=== PATIENT | female | born 1960 | race Caucasian/White ===

== ENCOUNTER 2017-09-15 05:48 | Day surgery (SDC) | payer MEDICARE ==
[2017-09-15] MEDS ORDERED: LACTATED RINGERS 1,000 ML ONE (06:48)
[2017-09-15] MEDS ORDERED: fentaNYL CITRATE INJ 50 MCG/ML AMP ONE (07:54)
[2017-09-15] MEDS ORDERED: MIDAZOLAM INJ 2 MG/2 ML VIAL ONE (07:54)
[2017-09-15] MEDS ORDERED: LACTATED RINGERS 1,000 ML IVS ONE (08:38)
--- NOTE | 2017-09-15 08:58 | OP ---
DATE OF PROCEDURE: 09/15/17 PREPROCEDURE DIAGNOSIS: 1. Surveillance colonoscopy for a history of colonic polyps. POSTPROCEDURE DIAGNOSIS: 1. Colonic polyp. PROCEDURE: 1. Colonoscopy with polypectomy. SURGEON: Jose Antoine MD. SEDATION: Monitored anesthesia care. ESTIMATED BLOOD LOSS: Less than 5 mL. PROCEDURE: Informed consent was obtained prior to sedation. The preprocedure cardiopulmonary assessment was satisfactory. The patient was brought to the Endoscopy Suite and placed in the left lateral decubitus position. The patient was then sedated by the anesthesia team. Digital rectal and perianal exams were unremarkable. The tip of the Olympus colonoscope was inserted into the rectum and advanced under direct visualization to the terminal ileum. The cecum was identified by the presence of the appendiceal orifice and ileocecal valve. Preparation of the colon was good. Upon reaching the terminal ileum, the endoscope was slowly withdrawn from the patient with careful attention paid to the entire colonic mucosa for the identification of any flat polyps or small vascular lesions. In the sigmoid colon, there was a 4 mm sessile polyp. This was resected with cold snare polypectomy, but the specimen was not retrieved. A retroflexed view of the anal verge showed no abnormalities. The endoscope was then withdrawn from the patient and the procedure terminated. RECOMMENDATION: 1. Discharge the patient home with escort. 2. Surveillance colonoscopy in 5 years' time. 3. Regular diet. 4. Continue present medications. 5. Followup in my office as previously scheduled. #[id number] MTDD
[2017-09-15 09:38] VITALS: BP 127/83; TEMP 97.5; O2SAT 96
[2017-09-15] MEDS ORDERED: PROPOFOL 200 MG/20 ML VIAL IV ONE (10:00)
[2017-09-15] MEDS ORDERED: LIDOCAINE 1% 10 ML VIAL INJ ONE (10:00)
== END 2017-09-15 09:50 | disposition home or self-care (01) ==
LOC: AMB 05:48
PROVIDERS: ATTEND Internal Medicine Gastroenterology
DX: Z12.11 Encounter for screening for malignant neoplasm of colon (principal); D12.5 Benign neoplasm of sigmoid colon; K21.9 Gastro-esophageal reflux disease without esophagitis; G89.29 Other chronic pain; M54.5 Low back pain; F17.200 Nicotine dependence, unspecified, uncomplicated; E11.9 Type 2 diabetes mellitus without complications; J44.9 Chronic obstructive pulmonary disease, unspecified; Z98.84 Bariatric surgery status; Z86.010 Personal history of colon polyps; Z79.891 Long term (current) use of opiate analgesic; Z79.84 Long term (current) use of oral hypoglycemic drugs; Z79.899 Other long term (current) drug therapy
CPT/HCPCS: 00812; 36416; 45385; 82948; J2250; J3010; J3490; J7120

== ENCOUNTER → 2017-09-28 | Outpatient (CLI) | payer MEDICARE ==
--- NOTE | 2017-09-29 08:51 | MRI ---
EXAM DESCRIPTION: Lumbar Spine w/o Contrast MRI. CLINICAL HISTORY: LUMBAR DEGENERATIVE DISC DISEASE COMPARISON: MRI lumbar spine 04/06/2013. TECHNIQUE: Multiplanar, multiple standard sequences, non contrast MRI, lumbar spine. FINDINGS: L5-S1: Disc desiccation with disc space preserved. Broad-based 4 mm bulge with 5 to 6 mm left paracentral protrusion abutting the left ventral thecal sac and the descending left S1 nerve above the subarticular recess. Borderline left paracentral mild canal stenosis. Bilateral mild facet arthrosis and posterior flavum ligament hypertrophy more on the left. Bilateral moderate foraminal narrowing more on the left. Prior partial left laminectomy. L4-5: Disc desiccation with disc space preserved. Posterior broad-based 4 mm disc bulge abutting the thecal sac. Hypertrophy of the bilateral flavum ligaments narrowing the transverse canal. AP canal diameter 9 mm. Bilateral mild facet arthrosis. Moderate right foraminal narrowing and left foraminal stenosis. L3-4: Disc desiccation. Anterior disc bulge and endplate ridging. Minimal disc space loss. Posterior broad-based 4 mm disc bulge. Moderate bilateral facet arthrosis and flavum ligament hypertrophy compressing the posterior thecal sac AP canal diameter 8 mm. Modic type I endplate reactive changes to the right of midline with disc spur complex encroaching on the foramen and abutting the exiting right L3 nerve. Borderline right foraminal stenosis. Left foramen is patent. L2-3: Disc desiccation and minimal disc space loss. Anterior bulging and endplate ridging. Posterior broad-based 4 mm disc bulge. Posterior hypertrophy facets and flavum ligaments impressing on the posterior lateral thecal sac. Moderate canal narrowing. Bilateral mild foraminal narrowing more on the right. L1-2: Disc desiccation with anterior disc space loss. Anterior Modic type II endplate reactive changes with anterior endplate ridging and disc bulging. Posterior broad-based disc bulge with right paracentral 5 mm protrusion abutting the thecal sac and the descending right S2 nerve. Borderline right paracentral canal stenosis. Bilateral mild foraminal narrowing. Minimal hypertrophy of the flavum ligaments and facet arthrosis. Conus terminates at this level. T12-L1: Disc is unremarkable with no bulging anterior or posterior. No canal or foraminal stenosis. Hypertrophy of left flavum ligament with left facet arthrosis. Paravertebral soft tissues showing paraspinal muscle atrophy.. Normal marrow signal in the remaining vertebral bodies and the posterior elements. Levoscoliosis L3-S1. Dextroscoliosis T11-L2. Vertebral bodies are not compressed at any level. IMPRESSION: 1. Left posterior L5-S1 disc protrusion abutting the descending left S1 nerve. This is a new finding since the prior study. Correlate for left S1 radiculopathy. 2. Multifactorial mild canal stenosis at L4-5 and moderate canal stenosis at L3-4; this is progressed at both levels since the prior study. Right side spondylosis at L3-4 with disc spur encroachment on the exiting right L3 nerve is a new finding since the prior study. 3. Left foraminal stenosis at L4-5 is a new finding since the prior study. Correlate for left L4 radiculopathy. 4. Right paracentral protrusion of the L1-2 disc abutting the descending right S2 nerve with borderline right paracentral canal stenosis. Moderate and prominent anterior spondylosis. Stable since the prior study. Electronically signed by: Mekhi Haynes MD 09/29/2017 8:49 AM CDT
== END ==
LOC: MRI 10:46
PROVIDERS: ATTEND Family Medicine
DX: M51.36 Other intervertebral disc degeneration, lumbar region (principal); M51.26 Other intervertebral disc displacement, lumbar region

== ENCOUNTER → 2017-11-12 | Outpatient (CLI) | payer MEDICARE ==
--- NOTE | 2017-11-12 15:39 | MRI ---
EXAM DESCRIPTION: Cervical Spine CLINICAL HISTORY: RADICULOPATHY COMPARISON: None Available. TECHNIQUE: MRI of the cervical spine is performed according to our usual protocol. FINDINGS: Sagittal T2 images reveal decreased signal intensity within the intervertebral discs consistent with desiccation. Normal T2 appearance of the cervical cord. Posterior discal abnormalities are most prominent at the C4-5 through C6-7 levels. Sagittal T1 images show benign marrow signal characteristics. Normal T1 appearance of the cervical and upper thoracic spinal cord. Normal alignment of the vertebral bodies and facets. Sagittal STIR images are negative for high signal intensity marrow edema within the vertebral bodies or posterior elements. No paraspinous fluid collection or cystic lesion. Axial images were obtained to evaluate the disc levels. C2-3: Normal posterior disc margin with no spinal stenosis or neural foraminal narrowing. Facets appear mildly hypertrophic. Normal appearance of the cord at this level. C3-4: Mild posterior disc/osteophyte complex is seen with right lateral and far right lateral accentuation. There is marked facet spurring on the right with uncovertebral joint spurring causing severe narrowing of the right neural foramen. No spinal stenosis. Left neural foramen appears widely patent. Mild facet degenerative changes on the left. Normal appearance of the cord at this level. C4-5: Moderate diffuse posterior disc/osteophyte complex is seen with effacement of CSF around the cord. No definite cord contouring is present. In the mid sagittal plane the AP diameter of the spinal canal measures 9 mm. Facet spurring is most prominent on the right. Bilateral facet and uncovertebral joint spurring causes severe neural foraminal narrowing. C5-6: Mild to moderate posterior disc/osteophyte complex is seen with left lateral accentuation. Facet degenerative changes are more prominent on the left than the right. Moderate left neural foraminal narrowing is related to facet and uncovertebral joint spurring. No significant spinal stenosis. Normal appearance of the cord at this level. C6-7: Moderate diffuse posterior disc/osteophyte complex is seen without significant spinal stenosis. There is mild facet spurring on the left with moderate bilateral uncovertebral joint spurring. Moderate right neural foraminal narrowing is seen with mild neural foraminal narrowing on the left. Normal appearance of the cord at this level. C7-T1: Marked left-sided facet degenerative spurring is seen with severe narrowing of the left sided neural foramen. Right neural foramen is mildly narrowed by facet and uncovertebral joint spurring. No spinal stenosis or posterior discal abnormality. Normal appearance of the cord at this level. IMPRESSION: Moderate posterior disc/osteophyte complex at C4-5 level with mild spinal stenosis. Multilevel facet and uncovertebral joint spurring causing neural foraminal narrowing as described. Electronically signed by: João Mojica MD 11/12/2017 3:38 PM CDT
== END ==
LOC: MRI 09:45
PROVIDERS: ATTEND Psychiatry & Neurology Neurology
DX: M54.12 Radiculopathy, cervical region (principal); M45.0 Ankylosing spondylitis of multiple sites in spine; F01.50 Vascular dementia, unspecified severity, without behavioral disturbance, psychotic disturbance, mood disturbance, and anxiety; M33.90 Dermatopolymyositis, unspecified, organ involvement unspecified; F81.9 Developmental disorder of scholastic skills, unspecified; E11.9 Type 2 diabetes mellitus without complications; R53.83 Other fatigue; R50.9 Fever, unspecified; M79.A9 Nontraumatic compartment syndrome of other sites; M10.9 Gout, unspecified

== ENCOUNTER → 2018-01-10 | Outpatient (CLI) | payer MEDICARE ==
--- NOTE | 2018-01-14 15:30 | MAM ---
EXAM DESCRIPTION: 3D Screening BILATERAL : Digital Mammography. CLINICAL HISTORY: 57 years Female SCREENING . No complaints. Remote family history of breast cancer. Childbirth. Postmenopausal. Currently on HRT. COMPARISON: 2-D digital screening bilateral study 06/09/2017 and 05/08/2015. Report from prior examination 2017 also reviewed. TECHNIQUE: Bilateral CC and MLO projection full-field images, 3-D tomosynthesis digital mammographic technique. CAD not utilized. FINDINGS: The breast parenchymal density pattern is: Scattered areas of fibroglandular density. No skin thickening or nipple retraction. Bilateral axillary lymph nodes. Bilateral intramammary lymph nodes. Bilateral solitary microcalcifications. Skin mole on the medial undersurface of the mid left breast indicated by skin marker. No new focal, stellate mass or density, focal asymmetry , and no suspicious microcalcifications bilaterally. Stable mammograms compared to prior study, taking into account differences in mammographic technique. IMPRESSION: BI-RADS CATEGORY: 2 - BENIGN FINDINGS. FOLLOW UP: Routine digital bilateral screening, one year interval from January 2018. Written communication explaining the IMPRESSION and follow-up, will be mailed to the patient and referring health care provider. According to the [employer], yearly mammograms are recommended starting at age 40 and continuing as long as a woman is in good health. Any breast change noted on a breast self-exam should be reported promptly to the patient's healthcare provider. Breast MRI is recommended for women with an approximately 20-25% or greater lifetime risk of breast cancer, including women with a strong family history of breast or ovarian cancer and women who have been treated for Hodgkin's disease. A negative mammographic report should not delay tissue diagnosis in patients with significant clinical history or physical findings. Extremely dense breast tissue limits the sensitivity of digital mammography. Electronically signed by: Mekhi Haynes MD 01/14/2018 3:29 PM CDT
== END ==
LOC: MAMMO 11:00
PROVIDERS: ATTEND Family Medicine
DX: Z12.31 Encounter for screening mammogram for malignant neoplasm of breast (principal)

== ENCOUNTER → 2018-01-11 | Outpatient (CLI) | payer MEDICARE | LOC: LAB.O 10:16 | PROVIDERS: ATTEND Family Medicine | DX: E11.8 Type 2 diabetes mellitus with unspecified complications (principal); E03.9 Hypothyroidism, unspecified; E78.00 Pure hypercholesterolemia, unspecified ==

== ENCOUNTER → 2018-05-30 | Outpatient (CLI) | payer MEDICARE ==
--- NOTE | 2018-05-31 08:59 | RAD ---
EXAM DESCRIPTION: Chest,2 Views CLINICAL HISTORY: R06.02 COMPARISON: Previous study May 27, 2015 TECHNIQUE: PA/lateral FINDINGS: There is no acute appearing cardiac or pulmonary abnormality. Heart size is normal with normal pulmonary vascularity. No pleural effusion or pneumothorax. Lungs are clear with no consolidating infiltrate. Lateral view shows intact sternum and T-spine. Spurring is seen in the lower C-spine. IMPRESSION: No acute process is identified in the chest. Electronically signed by: João Mojica MD 05/31/2018 8:58 AM [facility]
== END ==
LOC: LAB.O 11:42
PROVIDERS: ATTEND Obstetrics & Gynecology
DX: R06.02 Shortness of breath (principal); R07.9 Chest pain, unspecified; E03.9 Hypothyroidism, unspecified; E11.9 Type 2 diabetes mellitus without complications; K21.9 Gastro-esophageal reflux disease without esophagitis; K57.92 Diverticulitis of intestine, part unspecified, without perforation or abscess without bleeding

== ENCOUNTER 2018-06-08 16:43 | Emergency (ER) | payer MEDICARE ==
[2018-06-08] MEDS ORDERED: SODIUM CHLORIDE 0.9% 1000ML 1,000 ML IVS ONE (17:01)
[2018-06-08] MEDS ORDERED: ASPIRIN (CHEWABLE) 81 MG TAB PO ONE (17:01)
[2018-06-08] MEDS ORDERED: NITROGLYCERIN 0.4 MG 25 EA TAB SL ONE (17:01)
[2018-06-08] MEDS ORDERED: ONDANSETRON ODT 8 MG TAB SL ONE (17:02)
--- NOTE | 2018-06-08 17:07 | ED.PDOC ---
History of Present Illness - General Chief Complaint: General Stated Complaint: short of breath, chest pain, dizzy, nausea Time Seen by Provider: 06/08/18 17:00 Source: patient, family Exam Limitations: no limitations - History of Present Illness Initial Comments: patient comes in today with episode of nausea, dry heaving, chest pain, and shortness of breath that started at 10 Patient has had intermittent bouts of these episodes going on last 1-2 months. She has an appointment with cardiology to discuss possible stress test versus other workup. Patient states today symptoms lasted longer and seemed to be worse and she got scared. patient states she has shortness of breath every day and was recently told that COPD. Patient does not notice it particularly worse at this time. Patient stopped smoking last month secondary to the diagnosis. states chest pain is a tightness that was much worse earlier and has improved currently. She does still feel the sensation of chest tighness, shakiness, and a weird sensation to her jaw. Patient states it is better but still present. She takes a baby aspirin at home but has not had any other medication including nitro tried yet for these symptoms. She denies emesis, abdominal pain, diarrhea, or constipation. She has no fever, chills, cough, or cold symptoms. She has diabetes, hypothyroidism, HTN ( just started on medication 1 month ago), and COPD. She has >20 pack year history. Timing/Duration: 4-6 hours Severity: severe Improving Factors: nothing, rest Worsening Factors: nothing Associated Symptoms: fever/chills, nausea/vomiting, shortness of breath Allergies/Adverse Reactions: Allergies NO KNOWN ALLERGY Allergy (Unverified 04/21/13 12:01) Home Medications: Ambulatory Orders Doxylamine Succinate (Sleep) [Sleep Aid] 25 mg PO BEDTIME 05/27/15 Esomeprazole Magnesium [Nexium] 40 mg PO DAILY 05/27/15 Estradiol [Estrace] 0.5 mg PO DAILY 05/27/15 Levothyroxine Sodium [Synthroid] 50 mcg PO DAILY 05/27/15 Naproxen Sodium [Aleve] 220 mg PO BEDTIME 05/27/15 Adderall 20 mg 60 mg PO DAILY 09/14/17 HYDROcodone 10MG/APAP 325MG 10.325 mg PO BID 09/14/17 Metformin HCl 500 mg PO DAILY 09/14/17 Morphine Oral Concentrate 60 mg PO BID 09/14/17 Trazodone HCl 1 tablet PO BEDTIME 06/08/18 Review of Systems - Review of Systems Constitutional: States: chills, weakness. Denies: fever EENTM: States: no symptoms reported. Denies: eye pain, ear pain, nose pain, nose congestion, throat pain Respiratory: States: short of breath. Denies: cough, wheezing Cardiology: States: see HPI, chest pain Gastrointestinal/Abdominal: States: nausea. Denies: abdominal pain, constipation, diarrhea, vomiting Genitourinary: States: no symptoms reported Musculoskeletal: States: no symptoms reported Skin: States: no symptoms reported Neurological: States: no symptoms reported Past Medical History (General) - Patient Medical History Hx Congestive Heart Failure: No Hx Diabetes: Yes Hx MRSA: Yes MRSA Source:: Wound Family Medical History - Family History Mother Family History: Unknown Physical Exam - Physical Exam General Appearance: Alert, Anxious Eye Exam: bilateral normal Ears, Nose, Throat: hearing grossly normal, normal ENT inspection, normal pharynx Neck: non-tender, full range of motion, supple, normal inspection Respiratory: chest non-tender, lungs clear, normal breath sounds, no respiratory distress Cardiovascular/Chest: normal peripheral pulses, regular rate, rhythm, no edema, no gallop, no JVD, no murmur Peripheral Pulses: radial,right: 2+, radial,left: 2+ Gastrointestinal/Abdominal: normal bowel sounds, non tender, soft Extremity: non-tender Neurologic: no motor/sensory deficits, alert, oriented x 3 Progress - Progress Progress: 06/08/18 18:17 Patient had no change with nitro but after breathing treatment chest pain improved greatly. Discussed prolonged QTc interval. Likely cause is her hypokalemia. After discussion, patient remembered that she was recently placed on Lasix and K. This may be the etiology for her hypokalemia and increased CR. These levels were normal on 05/30. It is less likely to be the lisinopril but with sudden worsening of CR would hold that medication at this time. Would also consider holding trazadone as it is high on the list of medications that increase QTC. Patient may benefit from change to nebulized treatment as she has not had any improvement with inhaler at home and N treatment here did work very well. Thyroid was checked on the and was normal on current therapy. Will call percussion instrument repairer practitioner to see about admission for K treatment on monitor and repeat EKG after normalization of K. We are ordering UA (on questioning she does state it has been foul smelling just no dysuria) and awaiting Mag level prior to that call. 06/08/18 19:39 magnesium level was <.8 and UA showed no definite UTI. Called for bed here and informed that we have no telemetry and that would be required for IV K and IV magnesium. Will call for transfer. Of note, patient is on chronic Nexium and we have warned her that she needs to stop in light of the magnesium deficiency - Results/Orders Results/Orders: 06/08/18 17:15 EKG STAT 06/08/18 17:16 MAGNESIUM Stat 06/08/18 18:05 KCl 40Meq/Ns [NS W/ KCL 40 meq/Liter] 1,000 ml IVS .QD 06/08/18 18:16 UA [URINALYSIS] Stat Laboratory Results WBC 6.5 K/mm3 (4.8-10.8) 06/08/18 17:16 RBC 4.38 M/mm3 (4.20-5.40) 06/08/18 17:16 Hgb 12.5 gm/dL (12.0-16.0) 06/08/18 17:16 Hct 38.1 % (36.0-47.0) 06/08/18 17:16 MCV 87.1 fl (81.0-99.0) 06/08/18 17:16 MCH 28.5 pg (27.0-31.0) 06/08/18 17:16 MCHC 32.7 g/dL (33.0-37.0) L 06/08/18 17:16 RDW 16.3 % (11.5-14.5) H 06/08/18 17:16 Plt Count 234 K/mm3 (130-400) 06/08/18 17:16 MPV 8.8 fl (7.40-10.4) 06/08/18 17:16 Absolute Neuts (auto) 3.30 K/uL (1.8-6.8) 06/08/18 17:16 Absolute Lymphs (auto) 2.10 K/uL (1.0-3.4) 06/08/18 17:16 Absolute Monos (auto) 0.90 K/uL (0.2-0.8) H 06/08/18 17:16 Absolute Eos (auto) 0.20 K/uL (0.0-0.4) 06/08/18 17:16 Absolute Basos (auto) 0.10 K/uL (0.0-0.1) 06/08/18 17:16 Neutrophils % 50.5 % (42.0-78.0) 06/08/18 17:16 Lymphocytes % 31.8 % (20.0-50.0) 06/08/18 17:16 Monocytes % 13.6 % (2.0-9.0) H 06/08/18 17:16 Eosinophils % 2.9 % (1.0-5.0) 06/08/18 17:16 Basophils % 1.2 % (0.0-2.0) 06/08/18 17:16 D-Dimer, Quantitative 0.49 mg/L FEU (0-0.49) 06/08/18 17:16 Sodium 135 mmol/L (135-145) 06/08/18 17:16 Potassium 2.7 mmol/L (3.6-5.0) L 06/08/18 17:16 Chloride 90 mmol/L (101-111) L 06/08/18 17:16 Carbon Dioxide 29 mmol/L (21-31) 06/08/18 17:16 Anion Gap 18.7 (12-18) H 06/08/18 17:16 BUN 17 mg/dL (7-18) 06/08/18 17:16 Creatinine 2.04 mg/dL (0.6-1.3) H 06/08/18 17:16 BUN/Creatinine Ratio 8.3 (10-20) L 06/08/18 17:16 Random Glucose 108 mg/dL (70-105) H 06/08/18 17:16 Serum Osmolality 272.2 mOsm/L (275-295) L 06/08/18 17:16 Calcium 9.2 mg/dL (8.4-10.2) 06/08/18 17:16 Total Bilirubin 0.8 mg/dL (0.2-1.0) 06/08/18 17:16 AST 56 IU/L (10-42) H 06/08/18 17:16 ALT 27 IU/L (10-60) 06/08/18 17:16 Alkaline Phosphatase 55 IU/L (42-121) 06/08/18 17:16 Creatine Kinase 109 IU/L (26-140) 06/08/18 17:16 CK-MB (CK-2) 3.9 ng/mL (0.0-4.4) 06/08/18 17:16 CK-MB (CK-2) % Not Reportable 06/08/18 17:16 Troponin I < 0.02 ng/mL (0.01-0.05) 06/08/18 17:16 Serum Total Protein 7.5 gm/dL (6.4-8.2) 06/08/18 17:16 Albumin 4.0 g/dl (3.2-5.5) 06/08/18 17:16 Globulin 3.5 gm/dL (2.3-3.5) 06/08/18 17:16 Albumin/Globulin Ratio 1.1 (1.1-1.9) 06/08/18 17:16 Amylase 24 U/L (28-100) L 06/08/18 17:16 Lipase 32 U/L (22-51) 06/08/18 17:16 Patient Name: GISSELL BUITRAGO Gender: Female Date of : 1960 Referring Physician: CAS MORIN Organization: [facility] Accession Number: [id number] Requested Date: June 08, 2018 17:02 Report Status: Final Requested Procedure: 1 Procedure Description: Chest,1 View Modality: CR Findings Reporting MD: Kiko Castle Fellow MD: Not available Dictation Time: Carpet Inspector: Not available Electrical Contacts Adjuster Date: EXAM DESCRIPTION: Chest,1 View CLINICAL HISTORY: shortness of breath, chest pain COMPARISON: Chest radiograph dated May 30, 2018 TECHNIQUE: Single upright portable frontal view of the chest FINDINGS: Cardiomediastinal silhouette and pulmonary vascularity are within normal limits. Lungs are clear without focal consolidations. Bilateral costophrenic angles are sharp. No pneumothorax. Visualized osseous structures show no destructive lesions. Included upper abdomen shows no acute abnormality. IMPRESSION: No radiographic evidence for acute cardiopulmonary process - EKG/XRAY/CT EKG: Sinus, no ST T wave changes Comments: prolonged QT interval, normal axis Departure - Departure Clinical Impression: Hypokalemia, Hypomagnesemia, Prolonged QT interval COPD (chronic obstructive pulmonary disease) Qualifiers: COPD type: unspecified COPD Qualified Code(s): J44.9 - Chronic obstructive pulmonary disease, unspecified Disposition: Transfer to Hospital Condition: Good Departure Forms: ED Discharge - Pt. Copy, Patient Portal Self Enrollment Diet: regular diet Referrals: SUDHA JACOBO [Primary Care Provider] - 1-2 Weeks Home Medications: Ambulatory Orders Doxylamine Succinate (Sleep) [Sleep Aid] 25 mg PO BEDTIME 05/27/15 Esomeprazole Magnesium [Nexium] 40 mg PO DAILY 05/27/15 Estradiol [Estrace] 0.5 mg PO DAILY 05/27/15 Levothyroxine Sodium [Synthroid] 50 mcg PO DAILY 05/27/15 Naproxen Sodium [Aleve] 220 mg PO BEDTIME 05/27/15 Adderall 20 mg 60 mg PO DAILY 09/14/17 HYDROcodone 10MG/APAP 325MG 10.325 mg PO BID 09/14/17 Metformin HCl 500 mg PO DAILY 09/14/17 Morphine Oral Concentrate 60 mg PO BID 09/14/17 Trazodone HCl 1 tablet PO BEDTIME 06/08/18 Transfer to Outside Facility - Transfer Information Accepting Facility: [facility] Reason for Transfer: specialized care not available - no tele available here all units taken
--- NOTE | 2018-06-08 17:27 | RAD ---
EXAM DESCRIPTION: Chest,1 View CLINICAL HISTORY: shortness of breath, chest pain COMPARISON: Chest radiograph dated May 30, 2018 TECHNIQUE: Single upright portable frontal view of the chest FINDINGS: Cardiomediastinal silhouette and pulmonary vascularity are within normal limits. Lungs are clear without focal consolidations. Bilateral costophrenic angles are sharp. No pneumothorax. Visualized osseous structures show no destructive lesions. Included upper abdomen shows no acute abnormality. IMPRESSION: No radiographic evidence for acute cardiopulmonary process. Electronically signed by: Kiko Castle MD 06/08/2018 5:26 PM [facility]
[2018-06-08] MEDS ORDERED: IPRATROPIUM/ALBUTEROL 3 ML VIAL NEB ONE (17:40)
[2018-06-08] MEDS ORDERED: KCL 40MEQ/NS 1,000 ML IVS PRN (18:05)
[2018-06-08] MEDS ORDERED: MAGNESIUM SULFATE PREMIX 2GM 2 GM in PREMIX BAG 1 BAG IVPB ONE (18:49)
[2018-06-08 18:50] VITALS: O2SAT 100
[2018-06-08] MEDS ORDERED: MAGNESIUM SULFATE PREMIX 2GM 50 ML IVPB ONE (18:51)
[2018-06-08 19:54] VITALS: TEMP 97.8
[2018-06-08] MEDS ORDERED: ALUM & MAG HYDROX-SIMETHICONE 30 ML UD PO ONE (20:18)
[2018-06-08 21:30] VITALS: BP 111/62
== END 2018-06-08 21:10 | disposition short-term general hospital (02) ==
LOC: ER 16:43
DX: J44.9 Chronic obstructive pulmonary disease, unspecified (principal); E87.6 Hypokalemia; E83.42 Hypomagnesemia; I45.81 Long QT syndrome; R07.9 Chest pain, unspecified; E11.9 Type 2 diabetes mellitus without complications; E03.9 Hypothyroidism, unspecified; I10 Essential (primary) hypertension; Z87.891 Personal history of nicotine dependence; Z79.84 Long term (current) use of oral hypoglycemic drugs; Z79.899 Other long term (current) drug therapy
CPT/HCPCS: 36415; 71045; 80053; 81001; 82150; 82550; 82553; 83690; 83735; 84484; 85025; 85379; 87086; 93005; 94640; J3475; J3480; J7030; J7620

== ENCOUNTER → 2019-04-18 | Outpatient (CLI) | payer MEDICARE ==
--- NOTE | 2019-04-19 09:38 | MRI ---
EXAM DESCRIPTION: Cervical Spine: MRI. CLINICAL HISTORY: 58 years Female CERVICAL RADICULOPATHY COMPARISON: MRI cervical spine November 2017. TECHNIQUE: Multiplanar, high-field MRI, multiple sequences, non-contrast Cervical spine. FINDINGS: C3-C4: Disc desiccation with no bulging into the canal but small bulge into the right neural foramen. Hypertrophic facet arthrosis on the right and uncinate spur with borderline right neural foraminal stenosis. Mild left neural foraminal narrowing. C4-C5: Disc desiccation and disc space loss. Anterior disc bulge and 2 millimeter anterolisthesis. Posterior broad-based disc bulge almost abutting the cord. Bilateral uncinate spurs. Bilateral neural foraminal stenosis. Posterior ligament thickening. Mostly right of midline with right paracentral mild canal stenosis. Hypertrophic facet arthrosis on the right. C5-C6: Disc desiccation and minimal disc space loss. Anterior disc bulging and endplate ridging. 3 mm grade 1 anterolisthesis. Posterior broad-based bulge mostly midline and left of midline. Posterior midline hyperintense T2 annular fissure. Moderate canal narrowing. Mild to moderate right neural foraminal narrowing. Moderate to severe left neural foraminal narrowing. C6-C7: Disc desiccation and minimal disc space loss. Anterior bulging and endplate ridging. Posterior midline focal bulge or small protrusion with hyper intense T2 annular fissure abutting the cord. Thickening of the posterior left ligaments. Central canal nearly stenotic. Bilateral uncinate spurs. No significant facet arthrosis. Mild to moderate left neural foraminal narrowing and borderline left neural foraminal stenosis. C7-T1: Disc desiccation and trace anterolisthesis and disc space loss. Hypertrophic left facet arthrosis and left neural foraminal stenosis. Mild narrowing of the canal with posterior ligament thickening. Mild to moderate right neural foraminal narrowing. T1-T2 disc desiccation with disc space maintained. Trace anterolisthesis with no disc bulging. Bilateral hypertrophic facet arthrosis with mild to moderate neural foraminal narrowing more left than right. Moderate canal narrowing. Normal signal in the C2-C3 disc with no bulging. Disc spaces preserved. Canal and neural foramina are patent. Facet joints negative Spinal alignment mid segments are slightly kyphotic.. No cord compression or cord edema. Atlantoaxial joint minimally hypertrophic. Base of the cerebellar tonsils is just above the foramen magnum. Paravertebral soft tissues negative. Vertebral bodies are not compressed at any level. Normal marrow signal in the remaining vertebral bodies and the posterior elements. IMPRESSION: 1. Multiple levels of disc desiccation bulging and disc space loss. Anterior bulging and endplate ridging at some levels. Unilateral or bilateral neural foraminal stenosis at multiple levels. Mild to moderate canal narrowing at several levels. Disc bulge posterior with annular fissures at some levels. Spine is kyphotic with several levels of anterolisthesis. 2. Right paracentral mild canal stenosis and bilateral neural foraminal stenosis at C4-C5. 3. Borderline right neural foraminal stenosis C3-C4. Borderline left neural foraminal stenosis C6-C7. Left neural foraminal stenosis C7-T1. Please see FINDINGS for additional details. Electronically signed by: Mekhi Haynes MD 04/19/2019 9:36 AM CDT
== END ==
LOC: MRI 13:52
PROVIDERS: ATTEND Psychiatry & Neurology Neurology
DX: M50.11 Cervical disc disorder with radiculopathy, high cervical region (principal); M50.121 Cervical disc disorder at C4-C5 level with radiculopathy; M50.122 Cervical disc disorder at C5-C6 level with radiculopathy; M50.123 Cervical disc disorder at C6-C7 level with radiculopathy; M50.13 Cervical disc disorder with radiculopathy, cervicothoracic region; M51.14 Intervertebral disc disorders with radiculopathy, thoracic region; M48.02 Spinal stenosis, cervical region; M48.03 Spinal stenosis, cervicothoracic region

== ENCOUNTER → 2019-04-19 | Outpatient (CLI) | payer MEDICARE ==
--- NOTE | 2019-04-20 10:25 | MRI ---
EXAM DESCRIPTION: Lumbar Spine w/o Contrast : Magnetic Resonance Imaging. CLINICAL HISTORY: RADICULOPATHY LUMBAR REGION COMPARISON: MRI lumbar spine without contrast 09/28/2017. TECHNIQUE: Multiplanar, multiple standard sequences, non contrast MRI, lumbar spine. FINDINGS: L5-S1: The disc is well visualized on axial T2 series 501, image 3. Disc desiccated with minimal bulge in the midline into the left of midline abutting the thecal sac and the descending left S1 nerve. Stable since the prior study. Partial laminectomy on the left with soft tissue changes again noted. AP canal diameter 12 mm. Moderate right foraminal narrowing and borderline left foraminal stenosis has progressed since the prior study. L4-L5: Disc desiccation with disc space maintained. Bilateral hypertrophic facet arthrosis and thickening of the posterior flavum ligaments impressing on the lateral thecal sac. AP canal diameter 9 mm stable. Moderate right foraminal narrowing and borderline left foraminal stenosis; stable since the prior study. L3-L4: Mild disc space loss on the left with disc desiccation and advanced disc space loss and endplate reactive changes on the right. Anterior disc bulge and endplate ridging. Right side disc osteophyte complex bulge into the soft tissues and the psoas muscle with moderate narrowing abutting the right L3 nerve. Left foramen is patent. Posterior bilateral hypertrophic facet arthrosis and ligament thickening impressing on the lateral thecal sac. AP canal diameter 7 mm. Stable since the prior study. L2-L3: Disc desiccation and minimal disc space loss more on the left. Anterior disc bulge and endplate ridging. Posterior broad-based bulge abutting the thecal sac. Retrolisthesis 2 mm. Bilateral mild foraminal narrowing. Stable since the prior study. L1-L2: Disc desiccation and large anterior bulge with endplate ridging. Posterior bilateral moderate hypertrophic facet arthrosis and ligament thickening. Posterior broad-based disc bulge with right paracentral small protrusion abutting the thecal sac and narrowing bilateral subarticular recesses, more on the right. AP canal diameter to the right of midline 9 mm. Conus terminates above the disc space. No change since the prior study. T12-L1: Minimal disc desiccation no significant bulging. Minimal hypertrophic facets and ligaments posterior. Canal and foramina are patent. L3-S1 levoscoliosis. Paravertebral soft tissues paraspinal muscle atrophy and postsurgical changes.. Distal cord normal signal and caliber. Normal marrow signal in the remaining vertebral bodies and the posterior elements. Vertebral bodies are not compressed at any level. IMPRESSION: 1. Multiple levels of disc desiccation and disc space narrowing. Spondylosis. Canal and foraminal narrowing. 2. Left foraminal stenosis at L5-S1 has progressed since the prior study. Borderline left L4-L5 foraminal stenosis is unchanged since the prior study. 3. Stable L3-L4 canal stenosis and right side disc osteophyte complex narrowing the right foramen and abutting the right L3 nerve since the prior study. 4. Right paracentral L1-L2 disc protrusion, narrowing of the subarticular recesses more on the right, and mild central canal stenosis unchanged since the prior study. Electronically signed by: Mekhi Haynes MD 04/20/2019 10:23 AM CDT
== END ==
LOC: MRI 13:41
PROVIDERS: ATTEND Psychiatry & Neurology Neurology
DX: M51.16 Intervertebral disc disorders with radiculopathy, lumbar region (principal); M48.061 Spinal stenosis, lumbar region without neurogenic claudication; M25.78 Osteophyte, vertebrae

== ENCOUNTER → 2019-06-27 | Outpatient (CLI) | payer MEDICARE ==
--- NOTE | 2019-06-27 16:33 | CT ---
EXAM DESCRIPTION: Abdoment/Pelvis w/o Contrast CLINICAL HISTORY: 58 years Female, Chronic kidney disease, stage 5 COMPARISON: None. TECHNIQUE: Transaxial images were obtained without intravenous or oral contrast media. Sagittal and coronal reconstruction was performed.This exam was performed according to our departmental dose-optimization program, which includes automated exposure control, adjustment of the mA and/or kV according to patient size and/or use of iterative reconstruction technique. FINDINGS: The lung bases are clear. A hiatus hernia is noted. A lap band is seen in place. The liver and spleen are unremarkable. No biliary ductal dilatation is observed. The gallbladder is been previously removed. Surgical clips are seen in the region of the gallbladder fossa. Imaging of the kidneys reveals no evidence of hydronephrosis mass cyst or calcification. No adrenal masses are detected. The pancreas is normal in appearance. Calcific atherosclerotic changes observed in the abdominal aorta without evidence of aneurysmal dilatation. The appendix is identified and is normal in appearance. No free fluid is observed in the pelvis. The patient is post hysterectomy. Diverticulosis of the colon is observed without evidence of diverticulitis. Degenerative changes are observed in the upper lumbar spine. IMPRESSION: 1. Hiatus hernia with a lap band in place. 2. Cholecystectomy. 3. No renal abnormality is detected. 4. Hysterectomy. 5. Diverticulosis without evidence of diverticulitis. Electronically signed by: Kiko Luis MD 06/27/2019 4:31 PM [employer]
== END ==
LOC: CT 10:40
PROVIDERS: ATTEND Internal Medicine Nephrology
DX: N18.4 Chronic kidney disease, stage 4 (severe) (principal); K44.9 Diaphragmatic hernia without obstruction or gangrene; K57.90 Diverticulosis of intestine, part unspecified, without perforation or abscess without bleeding; Z98.84 Bariatric surgery status; Z90.49 Acquired absence of other specified parts of digestive tract; Z90.710 Acquired absence of both cervix and uterus

== ENCOUNTER 2019-12-06 16:18 | Emergency (ER) | payer MEDICARE ==
--- NOTE | 2019-12-06 16:32 | ED.PDOC ---
History of Present Illness - General Chief Complaint: Neuro Symptoms/Deficits Time Seen by Provider: 12/06/19 16:30 Source: patient Exam Limitations: no limitations - History of Present Illness Initial Comments: 59 yo F who presents for visual deficits in both eyes for 3 days with associated frontal pressure headache, generalized weakness, n/v, unsteady gait, dizziness with associated falls x2 (does not believes she hit her head). Hx of seizures and has missed the previous three days of her medications. Has a neurologist in [place] that she has seen for similar sx in the past, told it was because she was off of her Keppra she takes for seizures. Denies f/c, cough, congestion, CP, SOB, body aches, sore throat, COVID exposure, abd pain, diarrhea, constipation, focal weakness, numbness. Pt is not on anticoagulation. Allergies/Adverse Reactions: Allergies NO KNOWN ALLERGY Allergy (Verified 12/06/19 17:23) Home Medications: Ambulatory Orders Doxylamine Succinate (Sleep) [Sleep Aid] 25 mg PO BEDTIME 05/27/15 Esomeprazole Magnesium [Nexium] 40 mg PO DAILY 05/27/15 Estradiol [Estrace] 0.5 mg PO DAILY 05/27/15 Levothyroxine Sodium [Synthroid] 50 mcg PO DAILY 05/27/15 Naproxen Sodium [Aleve] 220 mg PO BEDTIME 05/27/15 Adderall 20 mg 60 mg PO DAILY 09/14/17 HYDROcodone 10MG/APAP 325MG 10.325 mg PO BID 09/14/17 Metformin HCl 500 mg PO DAILY 09/14/17 Morphine Oral Concentrate 60 mg PO BID 09/14/17 Trazodone HCl 1 tablet PO BEDTIME 06/08/18 Review of Systems - Review of Systems Constitutional: Denies: chills, fever EENTM: States: other - decreased vision. Denies: eye pain, nose congestion, throat pain Respiratory: Denies: cough, orthopnea, short of breath Cardiology: Denies: chest pain, palpitations Gastrointestinal/Abdominal: States: nausea, vomiting. Denies: abdominal pain, constipation, diarrhea Genitourinary: Denies: dysuria, frequency, hematuria Musculoskeletal: Denies: back pain, joint pain, muscle pain, neck pain Skin: Denies: lesions, rash Neurological: States: headache, weakness - generalized, unsteady gait, falls, dizziness. Denies: numbness Endocrine: Denies: increased thirst, increased urine Hematologic/Lymphatic: Denies: easy bleeding, easy bruising Past Medical History (General) - Patient Medical History Hx Seizures: No Hx Stroke: No Hx of COPD: Yes Hx Congestive Heart Failure: No Hx Hypertension: Yes Hx Thyroid Disease: Yes Hx Diabetes: Yes Hx Cancer: No Hx MRSA: Yes MRSA Source:: Wound - Vaccination History Hx Tetanus, Diphtheria Vaccination: No Hx Influenza Vaccination: No - Social History Hx Alcohol Use: No Hx Depression: No Family Medical History - Family History Mother Family History: Unknown Physical Exam - Physical Exam General Appearance: Alert, Comfortable, No apparent distress, Well Developed, Well Nourished Eye Exam: bilateral other - Unable to track, will look all the way to the R on command but unable to look past midpoint when asked to look to the L, reports vision only intact bilaterally to light, Pressure bilaterally 21. No temporal TTP. ENT Exam: pharynx normal Neck: non-tender, full range of motion, supple, normal inspection, trachea midline Respiratory: chest non-tender, lungs clear, normal breath sounds, no respiratory distress, no accessory muscle use Cardiovascular/Chest: normal peripheral pulses, regular rate, rhythm, no edema, no gallop, no JVD, no murmur Peripheral Pulses: radial,right: 2+, radial,left: 2+ Gastrointestinal/Abdominal: non tender, soft, no organomegaly, no pulsatile mass, other - No distention, guarding, rebound Back Exam: normal inspection, no CVA tenderness, no vertebral tenderness Extremities Exam: non-tender, normal range of motion, no evidence of injury, no edema Mental Status: alert, oriented x 3 environmental officer Exam: normal hearing, normal speech, other - No facial asymmetry Coordination/Gait: other - unable to perform bilateral heel to castellon Motor/Sensory: other - Good strength throughout, no sensory deficit Skin Exam: normal color, warm/dry Progress - Progress Progress: 12/06/19 18:09 Discussed with pt and son the findings, states she would prefer to be transferred to [facility] where her neurologist is located, Dr. Knight. Per son, pt has been this way in the past when off of keppra. No know seizure recently. 12/06/19 18:[address] Sneed at [facility], accepts for transfer. Sharon Koo MD Emergency Medicine Physician Billing Number [id number] 1A. LOC Responsiveness Scores given according to the stimuli required to arouse the patient. Stimulus intensity should be increased gradually, starting from verbal to physical stimulation: Alert, responsive patient [0 points] Not alert, verbally arousable or to minor stimulation [1 point] Not alert, arousable to repeated, intense stimuli [2 points] Totally unresponsive, areflexic [3 points] 1B. LOC Questions Question about the current month and age: Both questions answered correctly [0 points] One of the questions answered correctly [1 point] Neither of the questions answered correctly or at all [2 points] 1C. LOC Commands The patients ability to understand and follow simple commands, the opening and closing of the eyes, lead programmer analyst and release of hands: Correct performance of both tasks [0 points] Correct performance of just one of the tasks [1 point] Incorrect or no performance of either task [2 points] 2. Horizontal eye movement The patients ability to track using his or her eyes, an object, pen or finger from side to side: Normal ability to follow pen or finger [0 points] Partial gaze palsy, abnormal in either one or both eyes [1 point] Total gaze paresis with gaze fixed to one side [2 points] 3. Visual field The patients vision in each of the visual thapa, having each eye tested individually while the other is covered. The upper and lower quadrants are tested by showing a number of fingers in that quadrant and asking the patient to count them: No vision loss [0 points] Partial hemianopia [1 point] Complete hemianopia [2 points] Bilateral Blindness [3 points] 4. Facial palsy This test observes facial symmetry in different types of movement such as the patient being asked to show teeth or gums, to squeeze eyes closed and to raise eyebrows: Normal and symmetrical movement [0 points] Minor paralysis with minor asymmetry [1 point] Partial paralysis in lower face [2 points] Complete facial hemiparesis [3 points] 5. Motor arm This task involves having the patient extend one arm 90 degrees out (sitting) or 45 degrees out (lying down) with the palm facing downwards while the eclectic doctor counts to 10. 5A and 5B note performance for each arm: 5A. Right arm No arm drift for the whole duration of the task [0 points] Drift to an intermediate position but without any support [1 point] The arm obtains the initial position but drifts down to support [2 points] No effort against gravity as the arm falls immediately [3 points] No voluntary movement [4 points] 5B. Left arm No arm drift for the whole duration of the task [0 points] Drift to an intermediate position but without any support [1 point] The arm obtains the initial position but drifts down to support [2 points] No effort against gravity as the arm falls immediately [3 points] No voluntary movement [4 points] 6. Motor leg Test supine position with one leg placed 30 degrees above horizontal and maintaining position while counting to 5. 6A and 6B note performance for each leA. Right leg No leg drift for the whole duration of the task [0 points] The leg drifts to an intermediate position, without support [1 point] Limited effort against gravity, the leg drifts to support [2 points] No effort against gravity, the leg falls immediately [3 points] No voluntary movement [4 points] 6B. Left leg No leg drift for the whole duration of the task [0 points] The leg drifts to an intermediate position, without support [1 point] Limited effort against gravity, the leg drifts to support [2 points] No effort against gravity, the leg falls immediately [3 points] No voluntary movement [4 points] 7. Limb ataxia Checking the presence of an unilateral cerebellar lesion, repeated (3, 4 times) movement of the finger from eclectic doctor touch to own nose and movement of the heel up and down the castellon of the opposite leg: Normal coordination, accurate movement [0 points] Ataxia present in one limb [1 point] Ataxia present in two or more limbs [2 points] 8. Sensory test Checking sensory loss due to stroke using pinpricks in the proximal portion of all four limbs: No evidence of sensory loss [0 points] Mild to moderate sensory loss, different sensation in the two sides [1 point] Severe or total loss of sensation to unilateral extremities [2 points] No response, quadriplegic, coma [2 points] 9. Language Assessing patients language skills using a picture of a scenario, a picture figuring random objects, a list of words and one of sentences: Normal skills, no obvious speech deficit [0 points] Mild to moderate aphasia with a certain loss of fluency [1 point] Severe aphasia with fragmented speech and limited context [2 points] Unable to speak - auditory comprehension [3 points] Default Coma Score [3 points] 10. Speech Dysarthria assessment by reading the word list: Normal speech [0 points] Mild to moderate dysarthria [1 point] Severe dysarthria - hardly understandable [2 points] 11. Extinction and inattention Double simultaneous stimulation: alternate touching (face, arms, legs) on the right and left side and both sides at the same time. Holding one finger in front of each of the eyes at the same time, wiggle one of the fingers or both and check the patients response: No observed abnormality [0 points] Innatention in one modality on one side [1 point] Darshan-innatention extinction to more that one modality [2 points] Default coma score [2 points] NIH score of 8, activase not given as out of time frame - Results/Orders Results/Orders: 12/06/19 16:30 Sodium Chloride 0.9% (Flush) [Saline Flush Syringe] 10 ml IV PRN PRN EKG STAT 12/06/19 19:06 Sodium Chloride 0.9% 1000ML [Ns 1000 ml] 1,000 ml IVS ONCE 12/07/19 16:30 EKG STAT Laboratory Results - last 24 hr 12/06/19 12/06/19 12/06/19 16:10 16:46 16:46 WBC 8.2 RBC 4.98 Hgb 15.3 Hct 45.3 MCV 91.0 MCH 30.7 MCHC 33.8 RDW 18.3 H Plt Count 176 MPV 9.3 Absolute Neuts (auto) 5.30 Absolute Lymphs (auto) 1.70 Absolute Monos (auto) 0.90 H Absolute Eos (auto) 0.20 Absolute Basos (auto) 0.10 Neutrophils % 64.5 Lymphocytes % 21.3 Monocytes % 10.6 H Eosinophils % 2.4 Basophils % 1.2 Normal RBC Morphology Stain quality accept ESR PT 10.8 INR 1.09 PTT (SP) 19.8 L Sodium Potassium Chloride Carbon Dioxide Anion Gap BUN Creatinine BUN/Creatinine Ratio POC Glucose 135 H Random Glucose Serum Osmolality Calcium Total Bilirubin AST ALT Alkaline Phosphatase Troponin I C-Reactive Protein Serum Total Protein Albumin Globulin Albumin/Globulin Ratio Ethyl Alcohol 12/06/19 12/06/19 12/06/19 16:46 16:46 16:46 WBC RBC Hgb Hct MCV MCH MCHC RDW Plt Count MPV Absolute Neuts (auto) Absolute Lymphs (auto) Absolute Monos (auto) Absolute Eos (auto) Absolute Basos (auto) Neutrophils % Lymphocytes % Monocytes % Eosinophils % Basophils % Normal RBC Morphology ESR 5 PT INR PTT (SP) Sodium 135 Potassium 4.6 Chloride 96 L Carbon Dioxide 30 Anion Gap 13.6 BUN 42 H Creatinine 4.25 H BUN/Creatinine Ratio 9.9 L POC Glucose Random Glucose 136 H Serum Osmolality 282.7 Calcium 18.2 H* Total Bilirubin 1.6 H AST 25 ALT 23 Alkaline Phosphatase 53 Troponin I < 0.02 C-Reactive Protein Serum Total Protein 7.5 Albumin 4.4 Globulin 3.1 Albumin/Globulin Ratio 1.4 Ethyl Alcohol 12/06/19 12/06/19 16:46 16:46 WBC RBC Hgb Hct MCV MCH MCHC RDW Plt Count MPV Absolute Neuts (auto) Absolute Lymphs (auto) Absolute Monos (auto) Absolute Eos (auto) Absolute Basos (auto) Neutrophils % Lymphocytes % Monocytes % Eosinophils % Basophils % Normal RBC Morphology ESR PT INR PTT (SP) Sodium Potassium Chloride Carbon Dioxide Anion Gap BUN Creatinine BUN/Creatinine Ratio POC Glucose Random Glucose Serum Osmolality Calcium Total Bilirubin AST ALT Alkaline Phosphatase Troponin I C-Reactive Protein < 0.5 Serum Total Protein Albumin Globulin Albumin/Globulin Ratio Ethyl Alcohol < 5.40 CT head: 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 This CT exam was performed according to our departmental dose-optimization program, which includes one or more of the following dose reduction techniques: automated exposure control, adjustment of the mA and/or kV according to patient size, and/or use of iterative reconstruction technique. COMPARISON: No prior exams provided for comparison. FINDINGS: There is no intracranial hemorrhage, extraaxial collection, or evidence of acute transcortical infarction. Scattered foci of low attenuation within the periventricular and subcortical white matter are most compatible with chronic microvascular disease. The ventricles and sulci are symmetric without midline shift or mass effect. Vascular calcifications are noted. No lesion of the skull base or calvarium is identified. The paranasal sinuses and mastoid air cells are clear. IMPRESSION: Mild chronic microvasc ular changes without acute intracranial finding. Electronically signed by: Xin Quinteros MD 12/06/2019 5:44 PM CDT CXR: EXAM DESCRIPTION: Chest,1 View CLINICAL HISTORY: CVA COMPARISON: Chest radiograph dated June 08, 2018 TECHNIQUE: One view radiograph of the chest FINDINGS: Cardiac silhouette shows normal heart size. Pulmonary vascularity is within normal limits. Lungs show no confluent infiltrates. No pleural effusion. No pneumothorax. Widening of the right acromioclavicular joint space by 1.1 cm without displacement. IMPRESSION: 1. No acute cardiopulmonary process. 2. Widening of the right acromioclavicular joint by 1.1 cm without displacement. Please correlate clinically for focal point tenderness or soft tissue injury. Electronically signed by: Kiko Castle MD 12/06/2019 5:45 PM CDT - 1966 Vital Signs - 24 hr 12/06/19 12/06/19 12/06/19 16:20 16:26 17:00 Temperature 98.2 F Pulse Rate [RT 81 81 75 BRACHIAL] Respiratory 20 20 20 Rate Blood Pressure 202/112 149/115 [RIGHT BRACHIAL ] O2 Sat by Pulse 97 92 L Oximetry 12/06/19 12/06/19 18:00 19:00 Temperature 97.5 F L Pulse Rate [RT 69 59 L BRACHIAL] Respiratory 20 20 Rate Blood Pressure 162/87 183/97 [RIGHT BRACHIAL ] O2 Sat by Pulse 97 97 Oximetry - EKG/XRAY/CT EKG: Sinus, no ST T wave changes Comments: Low voltage Departure - Departure Clinical Impression: AMIE (acute kidney injury), Uremia, Hypercalcemia, Visual changes Time of Disposition: 18:07 Disposition: Transfer to Hospital Home Medications: Ambulatory Orders Doxylamine Succinate (Sleep) [Sleep Aid] 25 mg PO BEDTIME 05/27/15 Esomeprazole Magnesium [Nexium] 40 mg PO DAILY 05/27/15 Estradiol [Estrace] 0.5 mg PO DAILY 05/27/15 Levothyroxine Sodium [Synthroid] 50 mcg PO DAILY 05/27/15 Naproxen Sodium [Aleve] 220 mg PO BEDTIME 05/27/15 Adderall 20 mg 60 mg PO DAILY 09/14/17 HYDROcodone 10MG/APAP 325MG 10.325 mg PO BID 09/14/17 Metformin HCl 500 mg PO DAILY 09/14/17 Morphine Oral Concentrate 60 mg PO BID 09/14/17 Trazodone HCl 1 tablet PO BEDTIME 06/08/18
[2019-12-06] MEDS: SODIUM CHLORIDE 0.9% 1000ML 1,000 ML IVS ONE ×2 (17:46→19:16)
--- NOTE | 2019-12-06 17:46 | CT ---
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 This CT exam was performed according to our departmental dose-optimization program, which includes one or more of the following dose reduction techniques: automated exposure control, adjustment of the mA and/or kV according to patient size, and/or use of iterative reconstruction technique. COMPARISON: No prior exams provided for comparison. FINDINGS: There is no intracranial hemorrhage, extraaxial collection, or evidence of acute transcortical infarction. Scattered foci of low attenuation within the periventricular and subcortical white matter are most compatible with chronic microvascular disease. The ventricles and sulci are symmetric without midline shift or mass effect. Vascular calcifications are noted. No lesion of the skull base or calvarium is identified. The paranasal sinuses and mastoid air cells are clear. IMPRESSION: Mild chronic microvascular changes without acute intracranial finding. Electronically signed by: Xin Quinteros MD 12/06/2019 5:44 PM CDT
[2019-12-06] MEDS: SODIUM CHLORIDE 0.9% (FLUSH) 10 ML SYG IV PRN (17:47)
--- NOTE | 2019-12-06 17:47 | RAD ---
EXAM DESCRIPTION: Chest,1 View CLINICAL HISTORY: CVA COMPARISON: Chest radiograph dated June 08, 2018 TECHNIQUE: One view radiograph of the chest FINDINGS: Cardiac silhouette shows normal heart size. Pulmonary vascularity is within normal limits. Lungs show no confluent infiltrates. No pleural effusion. No pneumothorax. Widening of the right acromioclavicular joint space by 1.1 cm without displacement. IMPRESSION: 1. No acute cardiopulmonary process. 2. Widening of the right acromioclavicular joint by 1.1 cm without displacement. Please correlate clinically for focal point tenderness or soft tissue injury. Electronically signed by: Kiko Castle MD 12/06/2019 5:45 PM CDT
[2019-12-06] MEDS ORDERED: TETRACAINE HCL 0.5% OPHTH SOL 1 DROP ONE (17:58)
[2019-12-06] MEDS: ACETAMINOPHEN IV 1000MG 1,000 MG in PREMIX BOTTLE 1 BOTTLE IVPB ONE (18:28)
[2019-12-06] MEDS: PANTOPRAZOLE SODIUM TAB 40 MG PO ONE (18:46)
[2019-12-06 19:24] VITALS: BP 183/97
[2019-12-06 19:53] VITALS: TEMP 97.6; O2SAT 96
== END 2019-12-06 19:35 | disposition short-term general hospital (02) ==
LOC: ER 16:18
DX: N17.9 Acute kidney failure, unspecified (principal); E83.52 Hypercalcemia; H53.9 Unspecified visual disturbance; R51 Headache; R53.1 Weakness; R42 Dizziness and giddiness; J44.9 Chronic obstructive pulmonary disease, unspecified; I10 Essential (primary) hypertension; E11.9 Type 2 diabetes mellitus without complications; Z79.899 Other long term (current) drug therapy
CPT/HCPCS: 36415; 70450; 71045; 80053; 80320; 82948; 84484; 85025; 85610; 85651; 85730; 86140; 93005; A4216; J7030